=== PATIENT | female | born 1965 | race Two or more races ===

== ENCOUNTER 2024-10-11 12:18 | Emergency (ER) | payer OTHER ==
[~2024-10-11] VITALS: Ht 175.3 cm; Wt 63.5 kg
[2024-10-11 13:15] VITALS: BP 109/71; TEMP 97.9; O2SAT 99
== END 2024-10-11 13:25 | disposition left against medical advice (07) ==
LOC: ER 12:30
DX: R10.9 Unspecified abdominal pain (principal); Z53.21 Procedure and treatment not carried out due to patient leaving prior to being seen by health care provider